=== PATIENT | male | born 1980 | race African-American/Black ===

== ENCOUNTER 2016-09-11 16:28 | Emergency (ER) | payer SELFPAY ==
--- NOTE | 2016-09-11 16:50 | ER Document Report ---
ED Medical Screen (RME) - General Stated Complaint: POSSIBLE RIGHT FOOT INFECTION Notes: right foot with scaling and peeling skin has been treating it as athletes foot, not healing has not followed up with podiatry I have greeted and performed a rapid initial assessment of this patient. A comprehensive ED assessment and evaluation of the patient, analysis of test results and completion of the medical decision making process will be conducted by additional ED providers. TRAVEL OUTSIDE OF THE [place] IN LAST 30 DAYS: No - Related Data Allergies/Adverse Reactions: No Known Allergies Allergy (Verified 09/11/16 16:47) Past Medical History - Past Medical History Cardiac Medical History: Reports: Hx Hypertension Endocrine Medical History: Denies: Hx Diabetes Mellitus Type 2 Skin Medical History: Denies Hx Eczema, Denies Hx Psoriasis Infectious Medical History: Denies: Hx MRSA - Immunizations Hx Diphtheria, Pertussis, Tetanus Vaccination: Yes
[2016-09-11] MEDS ORDERED: FLUCONAZOLE 100 MG TABLET PO ONE (18:24)
--- NOTE | 2016-09-11 18:30 | ER Document Report ---
Addendum entered and electronically signed by LAILA CADET FNP 18:31: Discharge - Discharge Clinical Impression: Candidiasis Disposition: HOME, SELF-CARE Additional Instructions: Athletes Foot Athlete's foot is a fungus infection of the skin. It typically causes cracking and peeling between the toes. The fungus thrives in a damp, warm environment. You should wash between the toes twice daily with a mild soap (like Phisoderm, Ivory, or Neutrogena). Dry between the toes thoroughly but carefully , and allow to air-dry several minutes. Then apply antifungal medication. If your feet sweat during work or sports, you should put cotton between the toes, changing it every hour or two. Frequent changes of socks are a must, both while the infection is present and afterward. Complete healing may take two or three weeks. Recurrences are common. Keep the spaces between the toes as clean and dry as possible. If increasing swelling and redness develops, if red streaks are seen, or if fever or chilling occur, return immediately for re-evaluation. Prescriptions: Clotrimazole/Betamethasone Dip [Lotrisone Cream 15 gm] 15 applic EXT Q12 #15 gm Fluconazole [Diflucan] 200 mg PO DAILY #5 tablet Original Note: ED General - General Chief Complaint: Skin Sore(s) Stated Complaint: POSSIBLE RIGHT FOOT INFECTION Mode of Arrival: Ambulatory Information source: Patient TRAVEL OUTSIDE OF THE [place] IN LAST 30 DAYS: No - HPI Onset: Other - This 36-year-old male is presented to the emergency room with a severe athlete's foot to his right lower extremity - Related Data Allergies/Adverse Reactions: No Known Allergies Allergy (Verified 09/11/16 16:47) Past Medical History - General Information source: Patient - Social History Smoking Status: Unknown if Ever Smoked Chew tobacco use (# tins/day): No Frequency of alcohol use: Occasional Drug Abuse: None Family History: Reviewed & Not Pertinent Patient has suicidal ideation: No Patient has homicidal ideation: No - Past Medical History Cardiac Medical History: Reports: Hx Hypertension Endocrine Medical History: Denies: Hx Diabetes Mellitus Type 2 Renal/ Medical History: Denies: Hx Peritoneal Dialysis Skin Medical History: Denies Hx Eczema, Denies Hx Psoriasis Infectious Medical History: Denies: Hx MRSA - Immunizations Hx Diphtheria, Pertussis, Tetanus Vaccination: Yes Review of Systems - Review of Systems Constitutional: No symptoms reported EENT: No symptoms reported Cardiovascular: No symptoms reported Respiratory: No symptoms reported Gastrointestinal: No symptoms reported Genitourinary: No symptoms reported Male Genitourinary: No symptoms reported Musculoskeletal: No symptoms reported Skin: No symptoms reported Hematologic/Lymphatic: No symptoms reported Neurological/Psychological: No symptoms reported Physical Exam - Vital signs Interpretation: Normal - General General appearance: Appears well, Alert - HEENT Head: Normocephalic, Atraumatic Eyes: Normal Pupils: PERRL - Respiratory Respiratory status: No respiratory distress Chest status: Nontender Breath sounds: Normal Chest palpation: Normal - Cardiovascular Rhythm: Regular Heart sounds: Normal auscultation Murmur: No - Abdominal Inspection: Normal Distension: No distension Bowel sounds: Normal Tenderness: Nontender Organomegaly: No organomegaly - Back Back: Normal, Nontender - Extremities General upper extremity: Normal inspection, Nontender, Normal color, Normal ROM , Normal temperature General lower extremity: Normal inspection, Nontender, Normal color, Normal ROM , Normal temperature, Normal weight bearing. No: Precious's sign Foot: Other - Reaping candidiasis infection - Neurological Neuro grossly intact: Yes Cognition: Normal Orientation: AAOx4 [place] Coma Scale Eye Opening: Spontaneous [place] Coma Scale Verbal: Oriented [place] Coma Scale Motor: Obeys Commands [place] Coma Scale Total: 15 Speech: Normal Motor strength normal: LUE, RUE, LLE, RLE Sensory: Normal - Psychological Associated symptoms: Normal affect, Normal mood - Skin Skin Temperature: Warm Skin Moisture: Dry Skin Color: Normal Discharge - Discharge Clinical Impression: Candidiasis Disposition: HOME, SELF-CARE Additional Instructions: Athletes Foot Athlete's foot is a fungus infection of the skin. It typically causes cracking and peeling between the toes. The fungus thrives in a damp, warm environment. You should wash between the toes twice daily with a mild soap (like Phisoderm, Ivory, or Neutrogena). Dry between the toes thoroughly but carefully , and allow to air-dry several minutes. Then apply antifungal medication. If your feet sweat during work or sports, you should put cotton between the toes, changing it every hour or two. Frequent changes of socks are a must, both while the infection is present and afterward. Complete healing may take two or three weeks. Recurrences are common. Keep the spaces between the toes as clean and dry as possible. If increasing swelling and redness develops, if red streaks are seen, or if fever or chilling occur, return immediately for re-evaluation. Prescriptions: Clotrimazole/Betamethasone Dip [Lotrisone Cream 15 gm] 15 applic EXT Q12 #15 gm Fluconazole [Diflucan] 200 mg PO DAILY #5 tablet
== END 2016-09-11 18:50 | disposition home or self-care (01) ==
LOC: ER 16:28
DX: B37.2 Candidiasis of skin and nail (principal); I10 Essential (primary) hypertension
CPT/HCPCS: 99283

== ENCOUNTER 2018-02-16 23:02 | Emergency (ER) | payer SELFPAY ==
[2018-02-17] MEDS ORDERED: FLUCONAZOLE 100 MG TABLET PO ONE (00:59)
--- NOTE | 2018-02-17 01:11 | ER Document Report ---
ED General - General Chief Complaint: Foot Pain Stated Complaint: FOOT INFECTION Time Seen by Provider: 02/17/18 00:05 TRAVEL OUTSIDE OF THE [place] IN LAST 30 DAYS: No - HPI Patient complains to provider of: Athlete's foot Notes: Patient has a history of significant athlete's foot infections. Patient states this occurs anywhere specific shoes at home states he has been wearing these for the last few days. Patient denies any fever states he has been applying Lotrimin cream without any benefit. Patient states last time became severely had to be placed on Diflucan. Patient denies any other past medical history except for hypertension patient is not taking any medications for his hypertension however is prescribed lisinopril. Denies any fevers chills nausea vomiting diarrhea - Related Data Allergies/Adverse Reactions: No Known Allergies Allergy (Verified 09/11/16 16:47) Past Medical History - Social History Smoking Status: Unknown if Ever Smoked Family History: Reviewed & Not Pertinent - Past Medical History Cardiac Medical History: Reports: Hx Hypertension Endocrine Medical History: Denies: Hx Diabetes Mellitus Type 2 Renal/ Medical History: Denies: Hx Peritoneal Dialysis Skin Medical History: Denies Hx Eczema, Denies Hx Psoriasis Infectious Medical History: Denies: Hx MRSA - Immunizations Hx Diphtheria, Pertussis, Tetanus Vaccination: Yes Review of Systems - Review of Systems Constitutional: No symptoms reported EENT: No symptoms reported Cardiovascular: No symptoms reported Respiratory: No symptoms reported Gastrointestinal: No symptoms reported Genitourinary: No symptoms reported Male Genitourinary: No symptoms reported Musculoskeletal: Other - Athletes foot infection left foot Skin: No symptoms reported Hematologic/Lymphatic: No symptoms reported Neurological/Psychological: No symptoms reported -: Yes All other systems reviewed and negative Physical Exam - Vital signs Interpretation: Normal - General General appearance: Appears well, Alert - HEENT Head: Normocephalic, Atraumatic Eyes: Normal Pupils: PERRL - Respiratory Respiratory status: No respiratory distress Chest status: Nontender Breath sounds: Normal Chest palpation: Normal - Cardiovascular Rhythm: Regular Heart sounds: Normal auscultation Murmur: No - Abdominal Inspection: Normal Distension: No distension Bowel sounds: Normal Tenderness: Nontender Organomegaly: No organomegaly - Back Back: Normal, Nontender - Extremities General upper extremity: Normal inspection, Nontender, Normal color, Normal ROM , Normal temperature General lower extremity: Nontender, Normal color, Normal ROM, Normal temperature , Normal weight bearing. No: Normal inspection - Discrimination of the distal portion of the plantar side of foot with signs of fungal infection in between the fifth fourth and third toes no signs of osteolytic process, Precious's sign - Neurological Neuro grossly intact: Yes Cognition: Normal Orientation: AAOx4 [place] Coma Scale Eye Opening: Spontaneous [place] Coma Scale Verbal: Oriented [place] Coma Scale Motor: Obeys Commands [place] Coma Scale Total: 15 Speech: Normal Motor strength normal: LUE, RUE, LLE, RLE Sensory: Normal - Psychological Associated symptoms: Normal affect, Normal mood - Skin Skin Temperature: Warm Skin Moisture: Dry Skin Color: Normal Course - Re-evaluation Re-evalutation: 02/17/18 01:28 Patient examinations consistent with a significant fungal infection of the foot. Will be placed on Diflucan weekly for next few weeks. Also encouraged patient use Desenex and Lotrimin. Patient was encouraged follow-up with his local primary care provider for further evaluation of his hypertension. Discharge - Discharge Clinical Impression: Athletes foot Condition: Good Disposition: HOME, SELF-CARE Instructions: Athletes Foot ([facility]) Additional Instructions: Your evaluation is consistent with athlete's foot. Please keep your foot clean and dry. Would recommend placing Desenex powder or Lotrimin cream to aid the infection. We will start you on Diflucan please take 1 tablet weekly for the next 4 weeks. Please watch her alcohol intake. Return to ER symptoms worsen. Prescriptions: Fluconazole [Diflucan] 150 mg PO ASDIR PRN #3 tablet PRN Reason: Forms: Elevated Blood Pressure Referrals: CHRISTINA CASTRO MD [Primary Care Provider] - Follow up as needed
[2018-02-17 02:02] VITALS: BP 173/111
== END 2018-02-17 01:55 | disposition home or self-care (01) ==
LOC: ER 23:02
DX: B35.3 Tinea pedis (principal); I10 Essential (primary) hypertension
CPT/HCPCS: 99283

== ENCOUNTER 2019-09-05 01:05 | Emergency (ER) | payer OTHER ==
--- NOTE | 2019-09-05 02:42 | RADIOLOGY REPORT (SQ) ---
EXAM DESCRIPTION: XR SHOULDER 2 OR MORE VIEWS COMPLETED DATE/TME: 09/05/2019 00:00 CLINICAL HISTORY: 39 years, Male, PAIN COMPARISON: None. NUMBER OF VIEWS: 3 TECHNIQUE: 3 views right shoulder LIMITATIONS: None. FINDINGS: Negative for fracture or dislocation. Soft tissues are unremarkable IMPRESSION: Negative exam copyright 2010 [employer]- All Rights Reserved
--- NOTE | 2019-09-05 04:21 | ER Document Report ---
ED General - General Chief Complaint: Shoulder Pain Stated Complaint: SHOULDER PAIN Time Seen by Provider: 09/05/19 04:02 Primary Care Provider: CHRISTINA CASTRO MD [NO LOCAL MD] - Follow up as needed Information source: Patient - Knee by who is good historian as well., Relative TRAVEL OUTSIDE OF THE [place] IN LAST 30 DAYS: No - HPI Onset: Last week - Patient reports he slept wrong causing right lateral neck pain and right trapezial pain and right supraspinatus pain pointing to the area. Onset/Duration: Persistent - Patient" also should be on blood pressure medicine like his mother but he does not like the urination it usually causes." Quality of pain: Burning Severity: Mild Pain Level: 2 Associated symptoms: Nonproductive cough - x 2 months - Related Data Allergies/Adverse Reactions: No Known Allergies Allergy (Verified 09/05/19 01:57) Past Medical History - General Information source: Patient, Relative - Social History Smoking Status: Never Smoker Cigarette use (# per day): No Chew tobacco use (# tins/day): No Smoking Education Provided: No Frequency of alcohol use: Heavy Drug Abuse: None Family History: Reviewed & Not Pertinent Patient has suicidal ideation: No Patient has homicidal ideation: No - Past Medical History Cardiac Medical History: Reports: Hx Hypertension Endocrine Medical History: Denies: Hx Diabetes Mellitus Type 2 Renal/ Medical History: Denies: Hx Peritoneal Dialysis Skin Medical History: Denies Hx Eczema, Denies Hx Psoriasis Infectious Medical History: Denies: Hx MRSA - Immunizations Hx Diphtheria, Pertussis, Tetanus Vaccination: Yes Review of Systems - Review of Systems Constitutional: No symptoms reported EENT: No symptoms reported Cardiovascular: No symptoms reported Respiratory: Hurts to breathe, Wheezing Gastrointestinal: No symptoms reported Genitourinary: No symptoms reported Male Genitourinary: No symptoms reported Musculoskeletal: Muscle pain - pointing to his right supraspinatus area Skin: No symptoms reported Hematologic/Lymphatic: No symptoms reported Neurological/Psychological: No symptoms reported Physical Exam - Vital signs Vitals: Temp Pulse Resp BP Pulse Ox 98.9 F 108 H 20 200/135 H 96 09/05/19 01:13 09/05/19 01:13 09/05/19 01:13 09/05/19 01:13 09/05/19 01:13 Course - Vital Signs Vital signs: Temp Pulse Resp BP Pulse Ox 98.1 F 94 18 170/130 H 96 09/05/19 04:28 09/05/19 03:55 09/05/19 05:01 09/05/19 05:00 09/05/19 05:01 - Diagnostic Test Radiology reviewed: Reports reviewed Critical Care Note - Critical Care Note Total time excluding time spent on procedures (mins): 60 Comments: Because of the 2-month duration and the rattling in his chest sensation chest x- ray revealing congestion as well. We will place the patient on lisinopril with HCTZ and give lasix tonight as well as Catapres 0.2 p.o. I discussed the need for having a personal doctor as well as a range scientist. And I advised him to return if symptoms persist or worsen. His right shoulder pain is most likely due to musculoskeletal and I advised Tylenol for this. I advised against using Motrin or Naprosyn steroidals for right shoulder pain. Discharge - Discharge Clinical Impression: Right trapezial muscle strain, Hypertension, Cough in adult, Congestive heart failure due to high blood pressure Condition: Good Disposition: HOME, SELF-CARE Additional Instructions: follow up with personal doctor this week return to ER as needed and take your blood pressure medicines daily and also get a blood pressure check at least twice a day; avoid arising quickly from laying position or from sitting position.. Hold onto something for least 1 to 2 minutes to allow blood pressure changes. You will notice that some symptoms associated from arising quickly may persist for around 1 week or more. Prescriptions: Lisinopril/Hydrochlorothiazide [Lisinopril-Hctz 20-25 mg Tab] 1 each PO DAILY 30 Days #30 tablet Referrals: CHRISTINA CASTRO MD [NO LOCAL MD] - Follow up as needed
[2019-09-05] MEDS ORDERED: CLONIDINE HCL 0.2 MG TABLET PO ONE (04:23)
--- NOTE | 2019-09-05 04:42 | RADIOLOGY REPORT (SQ) ---
EXAM DESCRIPTION: XR CHEST 2 VIEWS COMPLETED DATE/TME: 09/05/2019 04:10 CLINICAL HISTORY: cough COMPARISON: None. FINDINGS: Frontal and lateral views of the chest. Cardiomediastinal silhouette: Cardiomegaly. Leads overlie the chest. Lungs: No consolidation, pneumothorax, or pleural effusion. Pulmonary vascular congestion. Bones: No acute osseous abnormality. Upper abdomen: No abnormality identified. IMPRESSION: 1. Cardiomegaly with pulmonary vascular congestion.
[2019-09-05] MEDS ORDERED: FUROSEMIDE 20 MG TABLET PO ONE (05:26)
[2019-09-05 05:58] VITALS: BP 163/116
== END 2019-09-05 05:46 | disposition home or self-care (01) ==
LOC: ER 01:05
DX: S29.012A Strain of muscle and tendon of back wall of thorax, initial encounter (principal); X58.XXXA Exposure to other specified factors, initial encounter; I11.0 Hypertensive heart disease with heart failure; I50.9 Heart failure, unspecified; M54.2 Cervicalgia; M79.18 Myalgia, other site; R05 Cough; E11.9 Type 2 diabetes mellitus without complications; R07.1 Chest pain on breathing; R06.2 Wheezing
CPT/HCPCS: 71046; 99284